=== PATIENT | female | born 1975 | race Caucasian/White ===

== ENCOUNTER 2025-03-01 15:52 | Emergency (ER) | payer OTHER ==
[2025-03-01] MEDS ORDERED: Sodium Chloride 0.9% 10 ML Syringe FLUSH PRN (16:37)
[2025-03-01 16:45] LABS: BASOPHILS PERCENT AUTO 0.5 % (0.0-1.0); EOSINOPHILS ABSOLUTE AUTO 0.1 K/mm3 (0.0-0.4); EOSINOPHILS PERCENT AUTO 0.7 % (0.0-6.0); HEMATOCRIT 38.1 % (37.0-47.0); HEMOGLOBIN 14.2 gm/dl (12.0-16.0); IMMATURE GRAN ABSOLUTE AUTO 0.02 K/mm3 (0.00-0.05); IMMATURE GRAN PERCENT AUTO 0.3 % (0.0-0.4); LYMPHOCYTES ABSOLUTE AUTO 2.2 K/mm3 (1.0-4.8); LYMPHOCYTES PERCENT AUTO 30.1 % (24.0-44.0); MEAN CORPUSCULAR HEMOGLOBIN 31.1 pg (28.0-32.0); MEAN CORPUSCULAR HGB CONC 37.3 g/dl (32.0-36.0); MEAN CORPUSCULAR VOLUME 83.6 fl (83.0-99.0); MEAN PLATELET VOLUME 9.4 fl (9.4-12.3); MONOCYTES ABSOLUTE AUTO 0.5 K/mm3 (0.0-0.8); MONOCYTES PERCENT AUTO 6.3 % (0.0-8.0); NEUTROPHILS ABSOLUTE AUTO 4.5 K/mm3 (1.8-7.7); NEUTROPHILS PERCENT AUTO 62.1 % (41.0-71.0); PLATELET COUNT,PLT 344 K/mm3 (150-400); RED BLOOD CELL COUNT 4.56 M/mm3 (4.10-5.30); WHITE BLOOD CELL COUNT,WBC 7.31 K/mm3 (3.9-11.3)
[2025-03-01 17:17] LABS: ALBUMIN 3.7 g/dl (3.4-5.0); ANION GAP 18.9 (5-15); BILIRUBIN TOTAL 0.5 mg/dL (0.2-1.0); BUN/CREATININE RATIO 8.6 (14-18); CALCIUM 9.6 mg/dL (8.5-10.1); CREATININE 1.4 mg/dL (0.55-1.02); EST CRCL DRUG DOSING (CG) 43.74 mL/min; POTASSIUM,K 2.9 mEq/L (3.5-5.1); PROTEIN TOTAL,TP 7.4 g/dl (6.4-8.2)
[2025-03-01] MEDS: LORazepam 2 MG/ML SDV IVPUSH ONE ×2 (17:21→19:50)
[2025-03-01] MEDS: Sodium Chloride 0.9% 1,000 ML IV SCH (17:27)
[2025-03-01 17:28] LABS: C-REACTIVE PROTEIN 0.1 mg/dL (<0.30)
[2025-03-01] MEDS: Potassium Chloride 20 MEQ Tab.ER PO ONE (18:32)
[2025-03-01] MEDS: Lactated Ringers 1,000 ML IV ONE (18:32)
== END 2025-03-01 19:58 | disposition home or self-care (01) ==
LOC: JD.ED 15:52
DX: F41.9 Anxiety disorder, unspecified (principal); E86.0 Dehydration; E87.6 Hypokalemia; Z88.8 Allergy status to other drugs, medicaments and biological substances
CPT/HCPCS: 36415; 71045; 80053; 83880; 84484; 85025; 86140; 93005; 96361; 96374; 96376; 99285; A9270; J2060; J7030; J7120; 93010; 99283